=== PATIENT | male | born 1995 | race Caucasian/White ===

== ENCOUNTER 2019-05-11 19:50 | Inpatient (IN) | payer BC ==
[~2019-05-11] VITALS: Ht 172.7 cm; Wt 65.8 kg
[2019-05-11 19:57] VITALS: Ht 172.7 cm; Wt 65.8 kg
--- NOTE | 2019-05-11 19:57 | NUR ---
PT BROUGHT TO ED BY DEREK OROPEZA AND [facility] FROM [facility] WITH C/O "BODY TENSING EPISODES". PER DEREK OROPEZA, PT HAS BEEN EXPEREINCING EPISODES WHERE HIS WHOLE BODY BECOMES TENSE HOWEVER PT REMAINS AWAKE AND ALERT AND ABLE TO ANSWER QUESTIONS APPROPRIATELY. PT IS ON A 5250 HOLD AT THIS TIME FOR BEING A DANGER TO HIMSELF AND GRAVELY DISABLED. PT DENIES SI OR HI AT THIS TIME. PT AWAKE AND ALERT, HOWEVER CAN NOT ANSWER QUESTIONS TO WHERE HE IS AT THIS TIME. WHEN PT EXPERIENCES EPISODES OF TENSING PT COMPLAINS OF NECK PAIN AND STATES "I JUST WANT TO SLEEP" AND "I JUST WANT IT TO STOP". PER MEDICS, PT WAS GIVEN ATIVAN THIS AM WITH NO RELIEF OF SYMPTOMS. PT DIAPHORETIC AT THIS TIME. PT ARRIVED TO ED IN 4 POINT RESTRAINTS FOR SAFETY, PT CALM AND COOPERATIVE BESIDES EPISODES OF TENSING. PT MOTHER AT BEDSIDE AT THIS TIME. PT MOTHER STATES TO CONCERN ABOUT SAFETY OF PT AND STAFF IF PT IS NOT IN RESTRAINTS AT THIS TIME. PT ON FULL CM, HR NOTED IN 150'S PT IN VIEW OF NURSE'S STATION.
--- NOTE | 2019-05-11 20:10 | NUR ---
DR ROSSI AT BEDSIDE FOR MSE.
--- NOTE | 2019-05-11 20:34 | NUR ---
PT PROVIDING URINE SAMPLE INTO URINAL AT THIS TIME. PT REMAINS CALM AND COOPERATIVE AT THIS TIME.
--- NOTE | 2019-05-11 20:43 | NUR ---
PT NOTED TO BE INTERACTING WITH PARENTS AT BEDSIDE, PT SMILING AND LAUGHING WITH VISITORS. PT REMAINS ON FULL CM IN VIEW OF NURSE'S STATION.
[2019-05-11 21:03] LABS: BASOPHIL % 0.2 % (0-2); PLATELET COUNT 224 x10^3mcL (130-400); RED CELL DISTRIBUTION WIDTH 12.9 % (11.5-14.5)
--- NOTE | 2019-05-11 21:07 | NUR ---
RESTRAINTS REMOVED AT THIS TIME. PT REMAINS AWAKE AND ALERT, CALM AND COOPERATIVE. IN VIEW OF STATION ON FULL CM.
[2019-05-11 21:19] LABS: CALCIUM 9.2 mg/dL (8.5-10.1); CARBON DIOXIDE 19.6 mmol/L (21-32); CHLORIDE SERUM 105 mmol/L (98-107); CREATININE SERUM 1.4 mg/dL (0.7-1.3); GFR1 > 60 mL/min; GLUCOSE SERUM 109 mg/dL (74-106); SODIUM SERUM 142 mmol/L (136-145)
[2019-05-11 21:31] LABS: ALBUMIN 4.2 g/dL (3.4-5.0); ALKALINE PHOSPHATASE 51 U/L (46-116); ALT/SGPT 37 U/L (16-63); AST/SGOT 32 U/L (15-37); BILIRUBIN TOTAL 0.7 mg/dL (0.20-1.00); FREE T4 1.75 ng/dL (0.76-1.46); LIPASE 195 IU/L (73-393); TOTAL PROTEIN, SERUM 7.2 g/dL (6.4-8.2)
--- NOTE | 2019-05-11 21:58 | NUR ---
PT ASKED SEVERAL TIMES TO PROVIDE URINE SPECIMEN, PT UNABLE TO PROVIDE URINE AT THIS TIME. PT GIVEN WATER.
[2019-05-11] MEDS ORDERED: GABAPENTIN800 M1 PO (22:12)
[2019-05-11] MEDS ORDERED: ABILIFY5 M1 PO (22:12)
[2019-05-11] MEDS ORDERED: XANAX2 MG PO (22:13)
--- NOTE | 2019-05-11 22:29 | NUR ---
PT REPORT CALLED TO ADILENE ORTIZ TO ASSUME PT CARE.
--- NOTE | 2019-05-11 22:30 | NUR ---
PT INTERACTING WITH FRIENDS AT BEDSIDE, SEEM SMILING AND CALM. PT AOX4, RESP EVEN AND UNLABORED, NO ACUTE DISTRESS NOTED. PT HAS NOT EXPERIENCED ANY ADDITIONAL EVENTS OF TENSING SINCE RECIEVING ATIVAN.
--- NOTE | 2019-05-11 22:30 | NUR ---
PER ADILENE ORTIZ, THEY ARE WAITING FOR A SITTER UNTIL PT CAN BE TRANSFERRED UPSTAIRS.
--- NOTE | 2019-05-11 22:57 | NUR ---
SPOKE WITH [facility] TO FOLLOW UP ON PT CONDITION. INFORMED [facility] THAT PT WILL BE ADMITTED AND THEY WILL FOLLOW UP AGAIN IN THE MORNING.
--- NOTE | 2019-05-12 00:27 | NUR ---
PT TRANSFERRED TO [address] BY [facility] BY OZIEL ORTIZ AND KORI EMT. PT ON CM FOR TRANSPORT. PT AOX4, RESP EVEN AND UNLABORED, NO ACUTE DISTRESS NOTED. PT ACCEPTED BY ADILENE ORTIZ FOR BEDSIDE HANDOFF. PT TRANSFERRED FROM [facility] TO BED WITHOUT INCIDENT.
[2019-05-12 00:31] VITALS: BP 149/94
--- NOTE | 2019-05-12 00:34 | NUR ---
RECEIVED PT FROM ED VIA [facility]. ORIENTED PT TO ROOM AND SURROUNDINGS. IV NOTED TO LAC PATENT AND INTACT. TELE 23 PLACED ON PT READING STA. INSTRUCTED PT ON THE USE OF CALL LIGHT FOR ASSISTANCE. ENDORSED PT TO PRIMARY NURSE ADILENE
--- NOTE | 2019-05-12 01:55 | NUR ---
PT C/O GENERALIZED ITCHINESS. NO SIGNS OF REDNESS OR RASH NOTED. NO C/O OF SOB OR DIFFICULTY BREATHING. MADE AWARE. NEURONTIN ORDERED. WILL MEDICATE PER EMAR. PT RESTING COMFORTABLY IN BED. FAMILY AT BEDSIDE. IV PATENT AND INTACT RUNNING FLUIDS PER EMAR. ON TELE# [address] 115. SITTER AT BEDSIDE. BED IN LOWEST POSITION. SIDE RAILS UPX2. CALL LIGHT WITHIN REACH. WILL CONTINUE TO MONITOR.
[2019-05-12 05:40] VITALS: BP 140/85
[2019-05-12 06:31] LABS: BASOPHIL % 0.4 % (0-2); PLATELET COUNT 163 x10^3mcL (130-400); RED CELL DISTRIBUTION WIDTH 13.1 % (11.5-14.5)
--- NOTE | 2019-05-12 06:55 | NUR ---
PT SLEPT COMFORATBLY IN INTERVALS THROUGHOUT THE NIGHT. NO ACUTE CHANGES NOTED. FAMILY AT BEDSIDE. SITTER AT BEDSIDE FOR 5250 HOLD. ON TELE # [address] 120. IV PATENT AND INTACT RUNNING FLUIDS PER EMAR. ALL NEEDS TENDED TO AND MET. ALL SCHEDULED MEDICATIONS GIVEN. BED IN LOWEST POSITION. SIDE RAILS UPX2. CALL LIGHT WITHIN REACH. WILL ENDORSE TO ONCOMING SHIFT.
--- NOTE | 2019-05-12 07:02 | NUR ---
RECIEVED PT FROM SKI INSTRUCTOR NURSE. PT SITTING UPRIGHT IN BED, AOX4, RESP E/U ON RA. NO ACUTE DISTRSS NOTED. ON TELE [address], HR: 103. IV TO LAC W/ NO SIGNS OF INFILTRATION, IVF INFUSING WELL. BED IN LOWEST POSITION AND CALL LIGHT WITHIN REACH. SITTER AT BEDSIDE. WILL CONTINUE TO MONITOR.
[2019-05-12 07:19] LABS: CALCIUM 8.2 mg/dL (8.5-10.1); CARBON DIOXIDE 24.7 mmol/L (21-32); CHLORIDE SERUM 106 mmol/L (98-107); GFR1 > 60 mL/min; GLUCOSE SERUM 87 mg/dL (74-106); MAGNESIUM 1.8 mg/dL (1.8-2.4); PHOSPHOROUS 4.2 mg/dL (2.5-4.9); POTASSIUM SERUM 3.4 mmol/L (3.5-5.1); SODIUM SERUM 141 mmol/L (136-145)
[2019-05-12 08:25] VITALS: BP 90/57
[2019-05-12 10:21] LABS: microscopic required? NO
[2019-05-12 10:47] LABS: UA SPECIFIC GRAVITY <=1.005 (1.005-1.035); urine erythrocyte NEGATIVE (NEGATIVE)
[2019-05-12 10:55] LABS: AMPHETAMINE QUAL UR NONE DETECTED (See below)
--- NOTE | 2019-05-12 11:55 | NUR ---
PT RESTING IN BED, AOX4, RESP E/U ON RA. C/O OF MILD MUSCLE ACHES BUT TOLERABLE, OTHERWISE NO ACUTE DISTRESS NOTED. DENIES HEADACHE OR DIZZINESS. BED IN LOWEST POSITION AND CALL LIGHT WITHIN REACH. WILL CONTINUE TO MONITOR.
[2019-05-12 12:40] VITALS: BP 151/93
[2019-05-12] MEDS ORDERED: DOXEPIN HCL50 MG PO (15:20)
[2019-05-12] MEDS ORDERED: XANAX2 MG PO (15:22)
[2019-05-12] MEDS ORDERED: LUNESTA3 MG PO (15:26)
[2019-05-12] MEDS ORDERED: NEURONTIN800 MG PO (15:29)
[2019-05-12] MEDS ORDERED: METAXALONE800 M2 PO (15:31)
--- NOTE | 2019-05-12 15:35 | NUR ---
PATIENT'S FAMILY BROUGHT PATIENT'S HOME MEDS. DUE TO EACH MED.WITH VERY HIGH DOSAGE, CALLED TO PATIENT'S PHARMACY [facility] [phone], COMFIRMED WITH PHARMACIST JEREMIAH Monge UPDATED PATIENT'S HOME MEDS LIST. DR. VALLE MADE AWARE THIS INFO.
[2019-05-12 17:06] VITALS: BP 143/93
--- NOTE | 2019-05-12 18:55 | NUR ---
PT RESTING IN BED, AOX4, RESP E/U ON RA. NO ACUTE DISTRESS NOTED. DENIES PAIN, HEADACHE OR DIZZINESS. BED IN LOWEST POSITION AND CALL LIGHT WITHIN REACH. WILL ENDORSE TO ONCOMING NURSE.
--- NOTE | 2019-05-12 19:10 | NUR ---
RECEIVED PT FROM PREVIOUS SHIFT NURSE. PT AOX4. DENIES GONZALEZ/DIZZINESS. TELE #23, ST, HR 101. DENIES CP/PRESSURE. DENIES SOB/DIFFICULTY BREATHING, ON RA. IV TO LAC, INTACT AND PATENT. BED IN LOWEST POSITION. CALL LIGHT WITHIN REACH. WILL CONTINUE TO MONITOR.
[2019-05-12 21:18] VITALS: BP 140/89
--- NOTE | 2019-05-13 02:00 | NUR ---
PT RESTING IN BED. RR EVEN AND UNLABORED. IN NO ACUTE DISTRESS. CALL LIGHT WITHIN REACH. BED IN LOWEST POSITION. WILL CONTINUE TO MONITOR.
[2019-05-13 04:03] VITALS: BP 128/90
[2019-05-13 05:54] LABS: BASOPHIL % 0.7 % (0-2); PLATELET COUNT 169 x10^3mcL (130-400); RED CELL DISTRIBUTION WIDTH 12.8 % (11.5-14.5)
[2019-05-13 06:29] LABS: CALCIUM 8.9 mg/dL (8.5-10.1); CARBON DIOXIDE 30.1 mmol/L (21-32); CHLORIDE SERUM 107 mmol/L (98-107); CREATININE SERUM 0.9 mg/dL (0.7-1.3); GFR1 > 60 mL/min; GLUCOSE SERUM 97 mg/dL (74-106); MAGNESIUM 1.9 mg/dL (1.8-2.4); PHOSPHOROUS 2.9 mg/dL (2.5-4.9); POTASSIUM SERUM 3.4 mmol/L (3.5-5.1); SODIUM SERUM 145 mmol/L (136-145)
--- NOTE | 2019-05-13 07:15 | NUR ---
RECEIVED BEDSIDE REPORT FROM CLINICAL RESEARCH PHYSICIAN NURSE. PATIENT RESTING COMFORTABLY IN BED. NO APPARENT DISTRESS OR DISCOMFORT NOTED. FAMILY MEMBER AT BEDSIDE. BREATHING EVEN AND UNLABORED. NO RESPIRATORY DISTRESS NOTED. PATIENT DENIES CHEST PAIN/PRESSURE. IV PATENT AND INTACT. ALL QUESTIONS AND CONCERNS ADDRESSED. ALL NEEDS ATTENDED TO. SITTER AT BEDSIDE TO PROMOTE PATIENT SAFETY. WILL CONTINUE TO MONITOR
[2019-05-13 08:01] VITALS: BP 140/85
--- NOTE | 2019-05-13 10:36 | NUR ---
ALL MORNING MEDICATIONS ADMINISTERED. PATIENT TOLERATED MEDICATION WELL. NO APPARENT DISTRESS OR DISCOMFORT NOTED. NO ADVERSE EFFECTS NOTED. ALL NEEDS ATTENDED TO. WILL CONTINUE TO MONITOR
--- NOTE | 2019-05-13 12:00 | NUR ---
DR UNGER AT BEDSIDE REVIEWING POC WITH PATIENT. ALL QUESTIONS AND CONCERNS ADDRESSED. ALL NEEDS ATTENDED TO. WILL CONTINUE TO MONITOR
--- NOTE | 2019-05-13 13:13 | NUR ---
PATIENT POTASSIUM 3.4. POTASSIUM COVERED WITH PO POTASSIUM. PATIENT TOLERATED MEDICATION WELL. NO APPARENT DISTRESS OR DISCOMFORT NOTED. ALL NEEDS ATTENDED TO. WILL CONTINUE TO MONITOR
[2019-05-13 16:30] VITALS: BP 125/79
--- NOTE | 2019-05-13 16:40 | NUR ---
SPOKE TO DR SCHROEDER REGARDING PATIENT AMMONIA LEVEL [address] SCHROEDER TO D/C LACTULOSE ORDER FROM PATIENT EMAR. AWAITING D/C ORDER. WILL CONTINUE TO MONITOR
--- NOTE | 2019-05-13 18:45 | NUR ---
PATIENT RESTING COMFORTABLY IN BED AT THIS TIME. NO APPARENT DISTRESS OR DISCOMFORT NOTED. FAMILY AT BEDSIDE. IV PATENT AND INTACT. ALL QUESTIONS AND CONCERNS ADDRESSED. ALL NEEDS ATTENDED TO. SAFETY PRECAUTIONS MAINTAINED. WILL ENDORSE ALL CARE TO MUSIC PUBLISHER NURSE
--- NOTE | 2019-05-13 19:41 | NUR ---
RECEIVED AWAKE , SITTING AT THE FOOT PART OF THE BED, SKIN WARM AND DRY MADY TOUCH. RESPIRATION EVEN AND UNLABORED. DENEIS ANY PAIN/DISCOMFORT.IV SITE AT THE LAC CLEAR AND INTACT, IVF NS AT 150ML/HR INFUSING VIA PERIPHERAL LINE TOLERATING WELL.SITTER AT BEDSIDE , BED IN LOWEST POSITION.
[2019-05-13 20:26] VITALS: BP 119/73
--- NOTE | 2019-05-13 22:30 | NUR ---
PT REFUSED XANAX , PT STATED IS TAKIN EPISZOCLONE (LUNSETA) 18MG FOR SEVERE INSOMNIA. DR ROBLES MADE AWARE, TALKED TO PT, ORDERED SAID MEDICATION . AND GIVEN [facility] VERIFICATION OF PT'S OWN BOTTLE OF MEDS. CALL LIGHT WITHIN REACH.
--- NOTE | 2019-05-14 01:20 | NUR ---
EYES CLOSED, APAPRENTLY ASLEEP SOUNDLY. BUT AROUSABLE TO VERBAL/PAINFUL STIMULI. CALL LIGHT WITHIN REACH.
--- NOTE | 2019-05-14 05:43 | NUR ---
NEURONTIN NOT GIVEN, PT BADLY REFUSED, CONTINUES ON IVF NS AT 150ML/HR VIA PERIPHERAL LINE AT THE LAC TOLERATING WELL. ORAL FLUIDS TAKEN , NO S/S OF ASPIRATION NOTED. KEPT CLEAN AND DRY. ALL NEEDS ATTENDED.
[2019-05-14 05:59] LABS: PLATELET COUNT 166 x10^3mcL (130-400); RED CELL DISTRIBUTION WIDTH 12.8 % (11.5-14.5)
[2019-05-14 06:18] LABS: CALCIUM 8.9 mg/dL (8.5-10.1); CARBON DIOXIDE 28.2 mmol/L (21-32); CHLORIDE SERUM 106 mmol/L (98-107); CREATININE SERUM 0.9 mg/dL (0.7-1.3); GFR1 > 60 mL/min; GLUCOSE SERUM 130 mg/dL (74-106); MAGNESIUM 1.7 mg/dL (1.8-2.4); PHOSPHOROUS 4.1 mg/dL (2.5-4.9); POTASSIUM SERUM 3.2 mmol/L (3.5-5.1); SODIUM SERUM 143 mmol/L (136-145)
[2019-05-14 06:21] VITALS: BP 116/84
--- NOTE | 2019-05-14 07:25 | NUR ---
ASSUMED CARE OF PATIENT. SEEN AWAKE AND ALERT THSI MORNING. SITTER AT BEDSIDE. NO COMPLAINTS OF PAIN OR DISCOMFORT. NO APPARENT DISTRESS NOTED. IV ON LAC PATENT AND INFUSING NS AT 150ML/HR. SEIZURE PRECAUTIONS IN PLACE. WILL CONTINUE TO MONITOR.
--- NOTE | 2019-05-14 09:31 | NUR ---
PER PATIENT REQUEST, UPDATE PROVIDED TO DR. CALLI DOLL. DOCTOR REQUESTING FOR DISCHARGE SUMMARY TO BE FAXED AT [phone]. DR. ALEXANDRE WALKER.
--- NOTE | 2019-05-14 09:34 | NUR ---
PATIENT SEEN IN BED WITH FAMILY AT BEDSIDE. NO ACUTE COMPLAINTS AT THIS TIME.
[2019-05-14 14:21] VITALS: BP 116/84
--- NOTE | 2019-05-14 15:03 | NUR ---
PATIENT DISCHARGED WITH ALL BELONGINGS. NO APPARENT DISTRESS OR DISCOMFORT NOTED. NO COMPLAINTS OF PAIN. IV REMOVED FOR DISCHARGE. ID BANDS REMOVED. DISCHARGED TO HOME.
== END 2019-05-14 15:01 | disposition home or self-care (01) | DRG 683 ==
LOC: ED 19:50 → DU 22:11 → MU 05-13 12:36
PROVIDERS: Emergency Medicine; ADMIT Internal Medicine
DX: N17.0 Acute kidney failure with tubular necrosis (principal); M62.82 Rhabdomyolysis; E87.2 Acidosis; R45.851 Suicidal ideations; E72.20 Disorder of urea cycle metabolism, unspecified; F32.2 Major depressive disorder, single episode, severe without psychotic features; J45.909 Unspecified asthma, uncomplicated; Z96.651 Presence of right artificial knee joint; G47.00 Insomnia, unspecified; G40.909 Epilepsy, unspecified, not intractable, without status epilepticus; Z88.0 Allergy status to penicillin; Z83.3 Family history of diabetes mellitus; Z82.49 Family history of ischemic heart disease and other diseases of the circulatory system
CPT/HCPCS: 83880; 84439; G0378; G0480; J2060; J3480; J7030; Q0092